=== PATIENT | female | born 1965 | race Caucasian/White ===

== ENCOUNTER 2024-02-15 10:04 | Emergency (ER) | payer BC ==
[~2024-02-15] VITALS: Ht 165.1 cm; Wt 71.7 kg
[2024-02-15] MEDS ORDERED: IOHEXOL-350 100 ML VIAL IV ONE (10:34)
[2024-02-15 10:44] LABS: BASOPHILS # (AUTO) 0.1 K/uL (0.0-0.2); BASOPHILS % (AUTO) 1.2 % (0.0-2.0); EOSINOPHILS # (AUTO) 0.3 K/uL (0.0-0.7); EOSINOPHILS % (AUTO) 4.8 % (0.0-6.0); HEMATOCRIT 40 % (33-45); HEMOGLOBIN 13.5 g/dL (11.5-14.8); LYMPHOCYTES # (AUTO) 1.7 K/uL (0.8-4.8); LYMPHOCYTES % (AUTO) 27.9 % (20.0-44.0); MEAN CORPUSCULAR HEMOGLOBIN 33 PG (26.0-33.0); MEAN CORPUSCULAR HGB CONC 34 g/dl (31.0-36.0); MEAN CORPUSCULAR VOLUME 97 fL (82-100); MONOCYTES # (AUTO) 0.5 K/uL (0.1-1.30); NEUTROPHILS # (AUTO) 3.4 K/uL (1.8-8.9); NEUTROPHILS % (AUTO) 57.1 % (43.0-81.0); PLATELET COUNT (AUTO) 224 K/uL (150-450); RED BLOOD CELL COUNT(AUTO) 4.12 MIL/uL (4.0-5.2); WHITE BLOOD COUNT (AUTO) 5.9 K/uL (4.3-11.0)
[2024-02-15 10:57] LABS: CALCIUM, SERUM 8.8 mg/dL (8.5-10.1); CARBON DIOXIDE 25 mmol/L (21-32); CHLORIDE 105 mmol/L (98-107); GLUCOSE 97 mg/dL (74-106); POTASSIUM 3.7 mmol/L (3.5-5.1); SODIUM SERUM 141 mmol/L (136-145); UREA NITROGEN, BLOOD 10 mg/dL (7-18)
[2024-02-15 10:58] LABS: INR 1.01 (0.91-1.10); PARTIAL THROMBOPLASTIN TIME 25.9 SEC (24.3-34.3); PROTHROMBIN TIME 10.7 SECS (9.2-11.1)
[2024-02-15] MEDS ORDERED: dexaMETHasone SOD PHOSPHATE 1 ML ONE (11:18)
[2024-02-15] MEDS ORDERED: Magnesium 1GM/D5W 100ML PREMIX 200 ML IV ONE (11:18)
[2024-02-15] MEDS ORDERED: ASPIRIN EC 325 MG TABLET.DR PO ONE (11:18)
[2024-02-15] MEDS: Magnesium 1GM/D5W 100ML PREMIX 100 ML IV SCH (11:30)
[2024-02-15] MEDS: dexaMETHasone SOD PHOSPHATE 4 MG/ML VIAL IV ONE (11:35)
[2024-02-15] MEDS: IV NS 0.9% 1,000 ML BAG IV ONE (11:44)
[2024-02-15] MEDS ORDERED: OMEG-165 PO (11:45)
[2024-02-15] MEDS ORDERED: CHOL200026 PO (11:45)
[2024-02-15] MEDS ORDERED: CALC1CAP21 PO (11:45)
[2024-02-15] MEDS ORDERED: [UNRECOGNIZED DRUG - CODE] TD (11:45)
[2024-02-15] MEDS: ASPIRIN EC 325 MG TABLET.DR PO ONE (11:45)
[2024-02-15] MEDS ORDERED: CYAN250010 PO (11:45)
[2024-02-15] MEDS ORDERED: DILT-2 PO (11:45)
[2024-02-15] MEDS: VALPROATE 500 MG in IV D5W 100 ML IV SCH (11:45)
[2024-02-15] MEDS ORDERED: FLUO10CA29 PO (11:45)
[2024-02-15] MEDS ORDERED: PROG100C15 PO (11:45)
[2024-02-15 12:44] LABS: APPEARANCE,URINE CLEAR (CLEAR); BILIRUBIN,URINE NEGATIVE (NEGATIVE); BLOOD, URINE TRACE-INTA Ery/uL (NEGATIVE); COLOR,URINE YELLOW (YELLOW); KETONES,URINE NEGATIVE (NEGATIVE); LEUKOCYTE ESTERASE ,URINE NEGATIVE (NEGATIVE); NITRITE, URINE NEGATIVE (NEGATIVE); PH,URINE 6.5 (5.0-8.0); PROTEIN,URINE NEGATIVE (NEGATIVE); UGLUCOSE NEGATIVE (NEGATIVE); UROBILINOGEN,URINE 0.2 EU/dL (0.2)
[2024-02-15 13:00] LABS: ADD URINE CULTURE NO; BACTERIA,URINE Rare /HPF (None Seen); RBC,URINE 0-2 /HPF (0-2); WBC,URINE 0-2 /HPF (0-3)
[2024-02-15 14:10] VITALS: BP 128/84; TEMP 98.4; O2SAT 99
== END 2024-02-15 14:11 | disposition home or self-care (01) ==
LOC: ER 10:08 → TELE 11:46 → UNDOADMIN 11:46 → UNDODISIN 12:30 → ER 14:11
DX: R20.0 Anesthesia of skin (principal); G43.909 Migraine, unspecified, not intractable, without status migrainosus; I10 Essential (primary) hypertension; Z86.79 Personal history of other diseases of the circulatory system
CPT/HCPCS: 99285; 70498; 96365; 96366; 96375; 96368; 93005; 70496; 85025; 80048; 81001; 36415; 84484 ×2; 85730; 82962; 70450; J1100; J7060; J7030; J3490; J3475; Q9967; A4223; G0378